=== PATIENT | female | born 1975 | race African-American/Black ===

== ENCOUNTER 2017-12-14 01:44 | Emergency (ER) | payer SELFPAY ==
[~2017-12-14] VITALS: Ht 162.6 cm; Wt 62.0 kg
[2017-12-14] MEDS ORDERED: PREDNISONE 20MG TABLET PO STA (02:26)
[2017-12-14] MEDS ORDERED: SODIUM CHLORIDE 0.9% 1,000 ML IV ONE (02:30)
[2017-12-14 03:52] VITALS: BP 112/68
== END 2017-12-14 04:37 | disposition home or self-care (01) ==
LOC: ER 02:12
DX: J45.901 Unspecified asthma with (acute) exacerbation (principal); R00.0 Tachycardia, unspecified; Z88.9 Allergy status to unspecified drugs, medicaments and biological substances
CPT/HCPCS: 99285; J7030; J7512; Z7610